=== PATIENT | male | born 1980 | race Caucasian/White ===

== ENCOUNTER → 2016-12-03 | Outpatient (REF) | payer BC ==
[~2016-12-03] MED LIST: CELE40TA PO; IBUP800T OR; TIZA4TAB OR
== END ==
LOC: M SFHCPLAZ 16:41
PROVIDERS: ATTEND Nurse Practitioner Family
DX: E03.9 Hypothyroidism, unspecified (principal); E55.9 Vitamin D deficiency, unspecified; Z53.9 Procedure and treatment not carried out, unspecified reason

== ENCOUNTER → 2016-12-05 | Outpatient (CLI) | payer BC, SELFPAY ==
[2016-12-05 19:15] LABS: FREE T4 0.9 NG/DL (0.76-1.46)
== END ==
LOC: M WUC 15:16
PROVIDERS: ATTEND Nurse Practitioner Family
DX: E03.9 Hypothyroidism, unspecified (principal); E55.9 Vitamin D deficiency, unspecified

== ENCOUNTER → 2016-12-27 | Outpatient (REF) | payer SELFPAY ==
[2016-12-27 11:43] LABS: BASO % 0.3 % (0.0-1.0); EOS # 0.4 K/mm3 (0.0-0.50); EOS % 5.9 % (0.0-3.0); LARGE UNSTAINED CELL # 0.2 K/mm3 (0.0-0.4); LYMPH # 2.3 K/mm3 (1.5-4.5); LYMPH % 28.8 % (24.0-44.0); MEAN CORPUSCULAR HEMOGLOBIN 31.8 pg (27.0-33.0); MEAN CORPUSCULAR HGB CONC 33.7 g/dl (32.0-36.5); MEAN CORPUSCULAR VOLUME 94.3 fl (80.0-96.0); MONO # 0.6 K/mm3 (0.0-0.8); MONO % 8.2 % (0.0-5.0); NEUTROPHILS % 54.8 % (36.0-66.0); PLATELET COUNT, AUTOMATED 230 k/mm3 (150-450); RED CELL DISTRIBUTION WIDTH 12.8 % (11.5-14.5); WHITE BLOOD COUNT 7.3 K/mm3 (4.0-10.0)
[2016-12-27 12:25] LABS: ALBUMIN 3.7 GM/DL (3.2-5.2); ALBUMIN/GLOBULIN RATIO 1.19 (1.00-1.93); ALKALINE PHOSPHATASE 63 U/L (45-117); ALT/SGPT 23 U/L (12-78); ANION GAP 9 MEQ/L (8-16); AST/SGOT 13 U/L (15-37); BILIRUBIN,TOTAL 0.5 MG/DL (0.2-1.0); BLOOD UREA NITROGEN 13 MG/DL (7-18); CALCIUM LEVEL 8.6 MG/DL (8.5-10.1); CARBON DIOXIDE LEVEL 24 MEQ/L (21-32); CHLORIDE LEVEL 108 MEQ/L (98-107); CREATININE FOR GFR 0.69 MG/DL (0.70-1.30); GLOMERULAR FILTRATION RATE > 60.0 (>60); GLUCOSE, FASTING 100 MG/DL (70-105); POTASSIUM SERUM 4.2 MEQ/L (3.5-5.1); SODIUM LEVEL 141 MEQ/L (136-145); TOTAL PROTEIN 6.8 GM/DL (6.4-8.2)
== END ==
LOC: M LABDRAW1 11:20
PROVIDERS: ATTEND Nurse Practitioner Family
DX: R42 Dizziness and giddiness (principal)

== ENCOUNTER → 2017-06-19 | Outpatient (CLI) | payer OTHER ==
[2017-06-19 20:15] LABS: ALBUMIN/GLOBULIN RATIO 1.21 (1.00-1.93); ALKALINE PHOSPHATASE 69 U/L (45-117); ALT/SGPT 27 U/L (12-78); ANION GAP 9 MEQ/L (8-16); AST/SGOT 15 U/L (15-37); BILIRUBIN,TOTAL 0.4 MG/DL (0.2-1.0); BLOOD UREA NITROGEN 13 MG/DL (7-18); CALCIUM LEVEL 8.8 MG/DL (8.5-10.1); CARBON DIOXIDE LEVEL 25 MEQ/L (21-32); CHLORIDE LEVEL 107 MEQ/L (98-107); CREATININE FOR GFR 0.79 MG/DL (0.70-1.30); GLOMERULAR FILTRATION RATE > 60.0 (>60); GLUCOSE, FASTING 94 MG/DL (70-105); SODIUM LEVEL 141 MEQ/L (136-145); TOTAL PROTEIN 7.3 GM/DL (6.4-8.2)
[2017-06-19 20:19] LABS: BASO # 0.1 K/mm3 (0.0-0.2); BASO % 0.7 % (0.0-1.0); EOS # 0.6 K/mm3 (0.0-0.50); EOS % 5.5 % (0.0-3.0); LARGE UNSTAINED CELL # 0.2 K/mm3 (0.0-0.4); LARGE UNSTAINED CELL % 1.7 % (0.0-4.0); LYMPH # 3.3 K/mm3 (1.5-4.5); LYMPH % 29.4 % (24.0-44.0); MEAN CORPUSCULAR HGB CONC 33.4 g/dl (32.0-36.5); MEAN CORPUSCULAR VOLUME 95.6 fl (80.0-96.0); MONO # 0.6 K/mm3 (0.0-0.8); MONO % 5.6 % (0.0-5.0); NEUTROPHILS # 6.1 K/mm3 (1.8-7.7); NEUTROPHILS % 57.1 % (36.0-66.0); PLATELET COUNT, AUTOMATED 247 k/mm3 (150-450); RED CELL DISTRIBUTION WIDTH 13.2 % (11.5-14.5); WHITE BLOOD COUNT 10.6 K/mm3 (4.0-10.0)
== END ==
LOC: M WUC 17:00
PROVIDERS: ATTEND Nurse Practitioner Family
DX: R42 Dizziness and giddiness (principal)

== ENCOUNTER → 2017-12-23 | Outpatient (CLI) | payer OTHER ==
[2017-12-23 18:30] LABS: FREE T4 0.77 NG/DL (0.76-1.46)
== END ==
LOC: M WUC 15:24
DX: E03.9 Hypothyroidism, unspecified (principal)
CPT/HCPCS: 84443

== ENCOUNTER 2020-05-22 16:45 | Emergency (ER) | payer OTHER | END 2020-05-22 18:10 | disposition home or self-care (01) | LOC: M ED 16:45 | DX: S93.402A Sprain of unspecified ligament of left ankle, initial encounter (principal); Y93.61 Activity, american tackle football; Y92.9 Unspecified place or not applicable; Y99.9 Unspecified external cause status; F32.9 Major depressive disorder, single episode, unspecified; F17.200 Nicotine dependence, unspecified, uncomplicated; Z88.0 Allergy status to penicillin; F12.90 Cannabis use, unspecified, uncomplicated ==

== ENCOUNTER 2020-07-27 07:06 | Emergency (ER) | payer OTHER ==
[~2020-07-27] VITALS: Ht 172.7 cm; Wt 77.2 kg
[2020-07-27] MEDS ORDERED: BOOSTRIX/ADACEL VACCINE (DIPHTH/PERTUSS/ACELL/TETANUS) 0.5ML SYR IM ONE (08:00)
[2020-07-27] MEDS ORDERED: LIDOCAINE 1% MDV 20ML VIAL INFIL ONE (09:15)
[2020-07-27] MEDS ORDERED: CLINDAMYCIN 600 MG in IV 1 EA IV ONE (11:00)
[2020-07-27] MEDS ORDERED: CLIN150C14 PO (15:46)
[2020-07-27 16:09] VITALS: BP 133/76
--- NOTE | 2020-08-02 08:07 | ER ---
DATE OF CONSULTATION: 07/27/2020 CHIEF COMPLAINT: Right middle finger laceration. HISTORY OF PRESENT ILLNESS: This 39-year-old man seen today in clinic. He sustained a laceration right middle finger on the ulnar side. 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 This occurred earlier this morning. Metal from the toilet paper dispenser came down, cut his hand. He was given Tetanus, Clindamycin and had irrigation of his hand performed by the PA at [facility]. He is left hand dominant. No prior history of problems with the fingers. PAST MEDICAL HISTORY: Depression. MEDICATIONS: - Citalopram ALLERGIES: PENICILLIN. PAST SURGICAL HISTORY: Knee surgeries. SOCIAL HISTORY: He smokes half a pack of cigarettes a day. He works at [employer]. This is a work-related injury. PHYSICAL EXAMINATION: This is a well-appearing 39-year-old man. There is a longitudinal laceration on the ulnar side of his right middle digit. He is able to flex and extend at the MCP, PIP and DIP joints. Normal sensation both sides of the finger. Capillary refill under three seconds. Full range of motion. No evidence of instability at the phalanxes. No obvious extensor or flexor tendon injury. He also has a small sutured laceration inferolateral thumb, quite small, a mm or less. Radiographs are reviewed of the hand. No obvious fracture. ASSESSMENT AND PLAN: A 39-year-old man who has a laceration on the ulnar side of his right third finger. Performed irrigation and debridement after discussion of pros, cons, risks and benefits of that and suturing. He has no obvious fracture. I asked him to receive Tetanus which he already had as well as place on outpatient antibiotics and follow up in two days time in the office. I would like to start immediate range of motion but no heavy lifting or soaking. PROCEDURE NOTE: Consent verbal obtained. I performed irrigation and debridement and suturing of the small 1-1/2 inch long incision centered over the ulnar side of his right third digit. He consented to this. I performed a thorough irrigation and debridement with Iodine and normal saline. Sutured subcutaneous tissues with 2-0 Vicryl sutures skin with 3-0 Ethilon in a horizontal mattress fashion. I placed gauze on top of this as well as Alvin bandage. Encouraged range of motion, elevation. Comminuted findings to the PA and asked him to be discharged home when he is comfortable. JHONY
--- NOTE | 2020-08-16 09:47 | ER ---
DATE OF CONSULTATION: 07/27/2020 REASON FOR CONSULTATION: Right middle finger laceration. HISTORY OF PRESENT ILLNESS: This 39-year-old man seen today in clinic. He sustained a laceration to the right middle finger on the ulnar side. 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 This happened at 6:45 this morning. The metal from the toilet paper dispenser came down and cut his hand. He was given a tetanus and clindamycin and had an irrigation of his hand performed by the PA at [facility]. He is left hand dominant. No prior history of problems with the fingers. PAST MEDICAL HISTORY: Depression. MEDICATIONS: Citalopram. ALLERGIES: PENICILLIN. PAST SURGICAL HISTORY: Knee surgeries. SOCIAL HISTORY: Smokes a half-pack of cigarettes per day. He works at [email or web address]. This is a work-related injury. PHYSICAL EXAMINATION: This is a well-appearing 39-year-old man. There is a longitudinal laceration on the ulnar side of his right middle digit. He is able to flex and extend the metacarpophalangeal (MCP), proximal interphalangeal (PIP), and distal interphalangeal (DIP) joints. Normal sensation to both sides of the finger. Capillary refill under 3 seconds. Full range of motion. No evidence of instability at the phalanxes. No obvious flexor tendon injury. He also has a small sutured laceration at the lateral corner by the thumb 1 mm or less. IMAGING: Radiographs were reviewed of the hand. There is no obvious fracture. ASSESSMENT AND PLAN: This 39-year-old man has a laceration on the ulnar side of this right third finger. We performed irrigation and debridement after discussion of pros, cons, risks and benefits of that, and suturing. He has no obvious fracture. Planned to receive tetanus, which he already had, as well as placed on outpatient antibiotics, and follow-up in two days time in the office. I would like him to start immediate range of motion, but no heavy lifting or soaking this. PROCEDURE NOTE: We talked about the pros, cons, risks, and benefits of going ahead with irrigation, debridement, and suturing of the small 1.5 inch long incision center of the ulnar side of his right third digit. He consented to this. We performed thorough irrigation and debridement with iodine and normal saline. We sutured with 2-0 Vicryl sutures and skin with 3-0 Ethilon in a horizontal mattress fashion. Placed gauze on top of this, as well as Alvin bandage, and very gentle range of motion and elevation. Communicated the findings to the PA and asked him to be discharged home when he is comfortable. JHONY
== END 2020-07-27 16:13 | disposition home or self-care (01) ==
LOC: M ED 07:06
DX: S61.011A Laceration without foreign body of right thumb without damage to nail, initial encounter (principal); S61.212A Laceration without foreign body of right middle finger without damage to nail, initial encounter; S66.193A Other injury of flexor muscle, fascia and tendon of left middle finger at wrist and hand level, initial encounter; W26.8XXA Contact with other sharp object(s), not elsewhere classified, initial encounter; Y92.89 Other specified places as the place of occurrence of the external cause; Y93.E9 Activity, other interior property and clothing maintenance; Y99.0 Civilian activity done for income or pay; F32.9 Major depressive disorder, single episode, unspecified; F41.9 Anxiety disorder, unspecified; F17.200 Nicotine dependence, unspecified, uncomplicated; Z88.0 Allergy status to penicillin; Z79.899 Other long term (current) drug therapy

== ENCOUNTER 2022-12-04 11:01 | Emergency (ER) | payer OTHER ==
[~2022-12-04] VITALS: Ht 172.7 cm; Wt 72.5 kg
[2022-12-04 11:01] VITALS: BP 158/81
[~2022-12-04 11:01] MED LIST changes: +CLIN150C17 PO
== END 2022-12-04 13:58 | disposition home or self-care (01) ==
LOC: M ED 11:01
DX: S30.0XXA Contusion of lower back and pelvis, initial encounter (principal); W00.0XXA Fall on same level due to ice and snow, initial encounter; Z88.0 Allergy status to penicillin; F32.A Depression, unspecified; F41.9 Anxiety disorder, unspecified; F17.200 Nicotine dependence, unspecified, uncomplicated

== ENCOUNTER 2022-12-06 10:46 | Emergency (ER) | payer OTHER ==
[~2022-12-06] VITALS: Ht 172.7 cm; Wt 64.6 kg
[2022-12-06] MEDS ORDERED: KETOROLAC 60MG 2ML VIAL IM ONE (11:50)
[2022-12-06] MEDS ORDERED: IBUP80TA PO (12:47)
[2022-12-06] MEDS ORDERED: CYCL-707 PO (12:47)
[2022-12-06 12:54] VITALS: BP 164/92
== END 2022-12-06 12:59 | disposition home or self-care (01) ==
LOC: M ED 10:46
DX: S20.211A Contusion of right front wall of thorax, initial encounter (principal); S29.012A Strain of muscle and tendon of back wall of thorax, initial encounter; W01.0XXA Fall on same level from slipping, tripping and stumbling without subsequent striking against object, initial encounter; Y92.007 Garden or yard of unspecified non-institutional (private) residence as the place of occurrence of the external cause; R91.8 Other nonspecific abnormal finding of lung field; M25.78 Osteophyte, vertebrae; F32.A Depression, unspecified; F41.9 Anxiety disorder, unspecified; Z88.0 Allergy status to penicillin
CPT/HCPCS: 70450; 71250; 72125; 72128; 72131; 96372; 99283; J1885

== ENCOUNTER 2023-01-19 18:58 | Emergency (ER) | payer OTHER ==
[~2023-01-19] VITALS: Ht 172.7 cm; Wt 73.5 kg
[~2023-01-19 18:58] MED LIST changes: +CYCL-707 PO; +IBUP80TA PO
[2023-01-19 18:59] VITALS: BP 168/97
[2023-01-19] MEDS ORDERED: LIDOCAINE W/EPINEPHRINE 1% 20ML VIAL SC ONE (19:55)
== END 2023-01-19 20:43 | disposition home or self-care (01) ==
LOC: M ED 18:58
DX: S01.81XA Laceration without foreign body of other part of head, initial encounter (principal); W22.09XA Striking against other stationary object, initial encounter; Y92.89 Other specified places as the place of occurrence of the external cause; Y93.89 Activity, other specified; Y99.8 Other external cause status

== ENCOUNTER 2023-02-12 10:44 | Emergency (ER) | payer OTHER ==
[~2023-02-12] VITALS: Ht 172.7 cm; Wt 74.7 kg
[2023-02-12 10:44] VITALS: BP 155/79
== END 2023-02-12 13:41 | disposition home or self-care (01) ==
LOC: M ED 10:44
DX: S62.646A Nondisplaced fracture of proximal phalanx of right little finger, initial encounter for closed fracture (principal); W23.0XXA Caught, crushed, jammed, or pinched between moving objects, initial encounter; Y92.89 Other specified places as the place of occurrence of the external cause; Y93.E6 Activity, residential relocation; Y99.8 Other external cause status; F41.9 Anxiety disorder, unspecified; F32.9 Major depressive disorder, single episode, unspecified; F17.210 Nicotine dependence, cigarettes, uncomplicated; Z88.0 Allergy status to penicillin

== ENCOUNTER → 2023-02-25 | Outpatient (CLI) | payer OTHER | LOC: M SOG 10:27 | PROVIDERS: ATTEND Physician Assistant | DX: S62.616A Displaced fracture of proximal phalanx of right little finger, initial encounter for closed fracture (principal); W18.30XA Fall on same level, unspecified, initial encounter; Y92.009 Unspecified place in unspecified non-institutional (private) residence as the place of occurrence of the external cause ==

== ENCOUNTER → 2023-03-14 | Outpatient (CLI) | payer OTHER | LOC: M SOG 15:33 | PROVIDERS: ATTEND Orthopaedic Surgery Hand Surgery | DX: S61.212D Laceration without foreign body of right middle finger without damage to nail, subsequent encounter (principal); M79.644 Pain in right finger(s) ==

== ENCOUNTER → 2023-04-15 | Outpatient (CLI) | payer OTHER | LOC: M SOG 10:15 | PROVIDERS: ATTEND Physician Assistant | DX: S62.616A Displaced fracture of proximal phalanx of right little finger, initial encounter for closed fracture (principal); W18.30XA Fall on same level, unspecified, initial encounter; Y92.009 Unspecified place in unspecified non-institutional (private) residence as the place of occurrence of the external cause ==

== ENCOUNTER 2023-05-07 22:12 | Emergency (ER) | payer OTHER ==
[~2023-05-07] VITALS: Ht 172.7 cm; Wt 75.9 kg
[2023-05-07 22:12] VITALS: BP 138/83; TEMP 98; O2SAT 97
== END 2023-05-08 00:35 | disposition left against medical advice (07) ==
LOC: M ED 22:12
DX: Z53.21 Procedure and treatment not carried out due to patient leaving prior to being seen by health care provider (principal)

== ENCOUNTER → 2023-05-22 | Outpatient (REF) | LOC: M LAB 16:10 | DX: Z00.00 Encounter for general adult medical examination without abnormal findings (principal) ==